=== PATIENT | female | born 2005 | race Caucasian/White ===

== ENCOUNTER 2024-04-07 15:25 | Emergency (ER) | payer OTHER, SELFPAY ==
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
[2024-04-07 15:48] VITALS: BP 122/67; PULSE 90; RESP 16; TEMP 36.6; O2SAT 100
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
[2024-04-07] MEDS: NAPROXEN 500 MG TABLET PO (16:35)
[2024-04-07 18:25] VITALS: BP 137/86; PULSE 84; RESP 14; TEMP 36.8; O2SAT 99
== END 2024-04-07 18:26 | disposition home or self-care (01) ==
PROVIDERS: Emergency Provider Emergency Medicine
DX: S52.591A Other fractures of lower end of right radius, initial encounter for closed fracture (principal); S52.614A Nondisplaced fracture of right ulna styloid process, initial encounter for closed fracture; V43.52XA Car driver injured in collision with other type car in traffic accident, initial encounter
CPT/HCPCS: 29125; 29130; 73090; 73110; 99284; A9270